=== PATIENT | female | born 1990 | race Caucasian/White ===

== ENCOUNTER 2020-04-30 12:11 | Inpatient (IN) | payer MEDICAID, SELFPAY ==
[2020-04-30 12:17] VITALS: BP 104/71; PULSE 77; RESP 20; TEMP 36.5; O2SAT 96
[2020-04-30 14:00] VITALS: BP 104/71; PULSE 77; RESP 20; TEMP 36.5; O2SAT 96
[2020-04-30] MEDS: hyDROXYzine 25 mg Capsule 50 MG PO (20:51)
[2020-04-30 22:00] VITALS: BP 126/77; PULSE 69; RESP 18; TEMP 36.8; O2SAT 97
[2020-05-01 06:00] VITALS: BP 95/63; PULSE 80; RESP 17; TEMP 36.7; O2SAT 96
[2020-05-01 14:05] VITALS: BP 102/57; PULSE 64; RESP 18; TEMP 36.8; O2SAT 98
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
[2020-05-01 20:30] VITALS: BP 118/82; PULSE 89; RESP 19; TEMP 36.5; O2SAT 96
[2020-05-01] MEDS: hyDROXYzine 25 mg Capsule 50 MG PO (21:26)
[2020-05-02 06:00] VITALS: BP 93/60; PULSE 64; RESP 18; TEMP 36.9; O2SAT 100
--- NOTE | 2020-05-02 10:33 | P.PN_ITS ---
Subjective NPU Subjective: Interval history: Nicolasa presents today reporting that she feels a little safer but we had an opportunity to talk about the relationship she has with her ex and the ways that it may be tied to the of her son. She is working with social work to identify an appropriate grief counseling follow-up and she was able to show a little better impulse control today. Once again discussed the risks, benefits and alternatives of considering a medication trial and she understood and continues to be resistant to initiating medication. She reports she was eating and sleeping a little better. Mental Status Exam MSE Comments: This is a well-nourished well-developed white female with adequate dress grooming and eye contact. No abnormal movements except for mild psychomotor retardation. cooperative with exam in no acute distress. speech was slightly decreased rate and volume. mood described as still in my head, affect subdued. Thought process organized. Thought content: Patient denied suicidal or homicidal ideation, but continues to have some passive wish, there were no delusions noted but she did endorse paranoia, she endorses some auditory hallucinations but denied visual hallucinations. Attention and concentration were intact and memory appeared reliable but none were formally tested. She is alert and oriented x3. Insight and judgment appear fair, impulse control is limited. Vitals/I&O/Wt Last Vital Signs Temp 98.0 F 05/02/20 20:10 Pulse 71 05/02/20 20:10 Resp 17 05/02/20 20:10 BP 113/68 05/02/20 20:10 Pulse Ox 97 05/02/20 20:10 A&P Additional A&P Information (1) Complicated bereavement: (2) Suicidal thoughts: (3) Impulse control disorder in adult: (4) Marital/partner relational problem: Additional A&P Information This is a 30-year-old female with long history of anger management issues, likely an offshoot of trauma with possible PTSD, bereavement issues and partner relational problems who presents resistant to medication but open to being connected with appropriate therapy especially for grief management. 1. Continue current medication. Continue to discuss consideration of an SSRI versus Wellbutrin. 2. Continue every 15 minute checks for safety. 3. Encourage individual, group and milieu therapy. 4. Work with social work team to connect with appropriate aftercare. Involuntary Hold Information 96 Hour Hold: 96 Hour Involuntary Admission: No Attestations NPU Medical Necessity Statement*: Inpatient hospitalization is medically necessary and the clinically appropriate intervention at this time. We will consider medications and make changes as indicated. Likely length of stay 1-3 days. Coding Level of Care Code Acute Hide Inspector And Sorter for Sherine Myles
[2020-05-02 14:00] VITALS: BP 125/82; PULSE 82; RESP 18; TEMP 36.9; O2SAT 97
[2020-05-02 20:10] VITALS: BP 113/68; PULSE 71; RESP 17; TEMP 36.7; O2SAT 97
[2020-05-02] MEDS: hyDROXYzine 25 mg Capsule 50 MG PO (20:16)
[2020-05-02] MEDS: trazodone 50 mg Tablet PO (20:17)
--- NOTE | 2020-05-02 21:30 | PC.NURSE ---
pt given Trazodone and Vistaril per pt request for can i have something for sleep and anxiety? .
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
--- NOTE | 2020-05-03 02:51 | PC.NURSE ---
Pt is in her room yelling at the delusional patient who is acting out down the manriquez from her room. She has calmed down but is easily irritated. Will continue to monitor both patients to ensure safety on the manriquez.
[2020-05-03 06:00] VITALS: BP 103/45; PULSE 83; RESP 15; TEMP 36.6; O2SAT 97
[2020-05-03] MEDS: acetaminophen 325 mg Tablet 650 MG PO (07:59)
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
[2020-05-03 12:06] VITALS: BP 103/45; PULSE 83; RESP 15; TEMP 36.6; O2SAT 97
[2020-05-03 13:35] VITALS: BP 104/70; PULSE 95; RESP 18; TEMP 36.7
== END 2020-05-03 20:14 | disposition home or self-care (01) | DRG 882 ==
LOC: NP 12:12
PROVIDERS: Admitting Provider Psychiatry & Neurology Psychiatry; Visit Provider Psychiatry & Neurology Psychiatry
DX: F43.29 Adjustment disorder with other symptoms (principal); R45.851 Suicidal ideations; F63.9 Impulse disorder, unspecified; Z63.0 Problems in relationship with spouse or partner; Z81.8 Family history of other mental and behavioral disorders; Z91.5 Personal history of self-harm; Z62.810 Personal history of physical and sexual abuse in childhood; Z62.819 Personal history of unspecified abuse in childhood
CPT/HCPCS: 12345